=== PATIENT | female | born 1980 | race Two or more races ===

== ENCOUNTER 2019-08-03 05:45 | Day surgery (SDC) | payer OTHER ==
[~2019-08-03] VITALS: Ht 162.6 cm; Wt 82.5 kg
--- NOTE | ~2019-08-03 | OR ---
[facility] [address] [place], [place] [address] Draft DATE OF OPERATION: 08/03/2019 SURGEON: Tila Toledo MD Patient of Dr. Toledo. PREOPERATIVE DIAGNOSIS: Pelvic pain. POSTOPERATIVE DIAGNOSIS: Pelvic pain. PROCEDURE: Diagnostic laparoscopy. CARPET CLEANER: Dr. Orellana. ANESTHESIA: General. ESTIMATED BLOOD LOSS: 10 mL. SPECIMEN: None. DRAINS: None. FINDINGS: Normal vagina. Normal size and shaped cervix, which was slightly friable, otherwise normal. Normal size and shaped uterus. The anterior cul-de-sac was free of any endometriosis or adhesions. The posterior cul-de-sac was free of any endometriosis or adhesions. The left tube was normal in the length and normal-appearing fimbriated end and no adhesions. The left ovary is normal size and shape without any evidence of endometriosis or adhesions. The left pelvic sidewall was free of any endometriosis or adhesions. The right tube was normal in length and normal pink fimbriated end and no adhesions. Right ovary is normal size and shape without any evidence of endometriosis or adhesions. The right pelvic sidewall was free of any endometriosis or adhesions. PATIENT NAME: TANO ANN OPERATIVE REPORT DATE OF : 80 REPORT #: [id number] PHYSICIAN: TILA TOLEDO MD PCP: NO PRIMARY CARE PHYSICIAN REPORT IS CONFIDENTIAL AND NOT TO BE RELEASED WITHOUT AUTHORIZATION [facility] [address] [facility], [place] [address] [place] Again, the only abnormal finding was few filmy adhesions above the liver. COMPLICATIONS: None. DESCRIPTION OF PROCEDURE: The patient was brought to the operating room and placed in supine position. After adequate general anesthesia was obtained, she was placed in dorsal lithotomy position, prepped and draped in usual sterile fashion. A German catheter was placed in the bladder and then weighted speculum placed in the vagina. The anterior lip of the cervix was grasped with an Allis clamp and the uterus sounded to 7 cm. The cervix was serially dilated and a Hulka clamp carefully introduced through the cervix and attached to the anterior lip of the cervix. The weighted speculum and Allis clamp were removed. Attention was then drawn to the abdomen. A small infraumbilical skin incision was made after injecting the area with 0.25% Marcaine with epinephrine. A 5 mm direct entry trocar and sleeve was used with the laparoscope inserted and abdominal wall lifted with two hands and the gas attached to the trocar and the trocar was gently inserted through the incision identifying each layer until the tip of the direct entry trocar was in the abdomen and gas began filling the abdominal cavity. The trocar was then placed in the rest of the way. The trocar removed and the laparoscope placed back through the sleeve. A small skin incision was then made just below the level of the umbilicus approximately 8 cm lateral to the midline. After transilluminating to avoid any vessels and injecting the area with 0.25% Marcaine with epinephrine, a bladed 5-mm trocar and sleeve entered the abdomen under direct visualization. Trocar was removed and blunt grasper inserted. The above findings were noted. There was slight bleeding from the lateral trocar site and it was difficult to adequately visualize intra-abdominally with the infraumbilical incision, so a 2nd 5 mm port was placed on the left side further lateral in the same fashion transilluminating the abdominal wall, injecting the area with 0.25% Marcaine with epinephrine and making a small skin incision with a scalpel and then placing a bladed 5-mm trocar and sleeve into the abdomen under direct visualization. Trocar was removed and the laparoscope placed through this lateral port in the above, and the right port was taken out. There was some slight blood from this lateral port, but there was no active bleeding. The gas was allowed to escape and again no active bleeding was seen and no bruising or hematoma was noted. Because of the original bleeding, it was decided to place one deeper stitch to help close this area, and so the abdomen was re-insufflated and a single stitch of 0 Vicryl was placed through the fascia from above, watching through the laparoscope to make sure that the needle did not catch any structures within the abdomen. The stitch was tied down and again the area carefully observed. No hematoma or active bleeding was seen even with most all the gas having escaped, so there was no pressure on the area. At this point, there did not appear to PATIENT NAME: TANO ANN OPERATIVE REPORT DATE OF : 80 REPORT #: [id number] PHYSICIAN: TILA TOLEDO MD PCP: NO PRIMARY CARE PHYSICIAN REPORT IS CONFIDENTIAL AND NOT TO BE RELEASED WITHOUT AUTHORIZATION [facility] [address] [facility] [place] [address] [place] be any evidence of bleeding, so all instruments were removed. The rest of the gas allowed to escape and the final sleeve removed. The 3 skin incisions were closed using subcuticular stitches of 4-0 Vicryl suture. The Hulka clamp was removed and the cervix noted to have good hemostasis. The patient tolerated the procedure well, went to recovery room in good condition. The sponge, needle, and instrument count correct at the end of procedure. Tila Toledo MD MJB/MODL /[id number] Copies: ~ PATIENT NAME: TANO ANN OPERATIVE REPORT DATE OF : 80 REPORT #: [id number] PHYSICIAN: TILA TOLEDO MD PCP: NO PRIMARY CARE PHYSICIAN REPORT IS CONFIDENTIAL AND NOT TO BE RELEASED WITHOUT AUTHORIZATION
--- NOTE | 2019-08-03 07:37 | NUR ---
CHRISTIANO PINTO INFORMED ME THAT PT IS ANXIOUS ABOUT TODAY.PT IS ALERT AND SEEMS ORIENTED, PLEASANT. SHE TOLD ME THTA THIS WAS EVEN HER FIRST IV, AND SPENT TIME INFORMING AND ENCOURAGING. PT REQUESTED PRAYER, DR JOSUE IN TO SEE PT. SHE ALSO NEEDED TO GIVE HER SISTER'S PHONE# TO CHRISTIANO PINTO, HAD HER COME IN AND GET FROM PT
--- NOTE | 2019-08-03 08:40 | NUR ---
08/03/19 0840 Yasmany,Shanta 0878 PT ARRIVED TO PACU ON 2L NC, PT WAKES TO TACTILE STIMULI AND REPORTS PAIN 6-11/23. PT FALLS EASILY BACK TO SLEEP AND RESP DECREASED, RN ENCOURAGES DEEP BREATHING OFF AND ON.
--- NOTE | 2019-08-03 09:22 | NUR ---
PT ARRIVES TO DS RM 6 FROM PACU DROWSY. PT RESPONDS TO VERBAL STIMULI, ABLE TO RATE PAIN IN ABD "PRESSURE" 1/10. DENIES NAUSEA. PT ENCOURAGED TO USE CALL LIGHT WITH ANY REQUESTS, CALL LIGHT WITHIN REACH.
[2019-08-03] MEDS ORDERED: NORCO 5-325 TA1 EACH PO (09:42)
[2019-08-03] MEDS ORDERED: IBUPROFEN800 MG PO (09:42)
--- NOTE | 2019-08-03 10:15 | NUR ---
PT RESTING IN BED WITH EYES CLOSED, RESP EVEN AND UNLABORED. CONT PULSE OXIMETER IN PLACE, 100% ON RA. PT AROUSES TO VERBAL STIMULI, ABLE TO ANSWER QUESTIONS AND QUICKLY FALLS BACK ASLEEP. CALL LIGHT WITHIN REACH.
--- NOTE | 2019-08-03 10:50 | NUR ---
PT USES CALL LIGHT TO NOTIFY RN OF URGE TO VOID. PT SLOWLY SAT AT SIDE OF BED, DENIES ANY NAUSEA. PT STATES "A LITTLE LIGHTHEADED" WHEN STANDING, DENIES FEELING UNSTEADY ON FEET. PT AMBULATES TO BATHROOM WITH RN ASSIST, ABLE TO VOID 600 MLS PINK-RED COLORED URINE WITH NO CLOTS PRESENT. PT BACK TO BED, SCD'S IN PLACE. PROVIDED PUDDING PER REQUEST. CALL LIGHT WITHIN REACH.
--- NOTE | 2019-08-03 11:21 | NUR ---
DR. JOSUE IN PT ROOM. PT RESTING IN BED WATCHING TV, CALLS SISTER THAT LIVES APPROX 1 HOUR AWAY FOR RIDE HOME. PT DENIES ANY PAIN STATES "SORENESS." NO NEEDS AT THIS TIME.
--- NOTE | 2019-08-03 11:48 | NUR ---
PT RATES PAIN /10 GRIMMACING FACE. STATES, "IT JUST ALL OF THE SUDDEN CAME ON STRONG." PT MEDICATED PER EMAR. PT SISTER WILL NOTIFY PT WHEN GETTING CLOSE TO HOSPITAL.
--- NOTE | 2019-08-03 12:13 | NUR ---
PT UP TO BATHROOM WITH RN ASSIST, STEADY GAIT. PT ABLE TO VOID 500 MLS LIGHT PINK URINE. BACK TO ROOM TO GET DRESSED. 1220: DC INSTRUCTIONS GIVEN TO PT, ALL QUESTIONS ADDRESSED. PAIN PRESCRIPTION IN DC FOLDER WITH PT. 1230: PT DC'S FROM DS RM 6 VIA WC TO FRONT ENTRANCE OF HOSPITAL. DC INSTRUCTIONS ALSO GIVEN TO SISTER IN PRESENCE OF PT. PT DC'S HOME WITH SISTER.
== END 2019-08-03 12:30 | disposition home or self-care (01) ==
LOC: OPS 05:45 → DS 05:45 → OPS 06:45 → DS 08:45 → OPS 11:30 → DS 11:30 → OPS 12:30
PROVIDERS: General Practice
PROC: 0UJH4ZZ Inspection of Vagina and Cul-de-sac, Percutaneous Endoscopic Approach (ICD-10-PCS; principal; 2019-08-03 06:45)
DX: R10.2 Pelvic and perineal pain (principal)
CPT/HCPCS: J0330; J1885; J2001; J2250; J2405; J2704; J3010; J3475; J7121